=== PATIENT | female | born 2000 | race Caucasian/White ===

== ENCOUNTER 2020-03-27 16:56 | Emergency (ER) | payer OTHER ==
[~2020-03-27] VITALS: Ht 170.2 cm; Wt 127.5 kg
[2020-03-27 16:59] VITALS: BP 154/94
--- NOTE | 2020-03-27 17:03 | NUR ---
Patient ambulated to bed 4. RN evaluating patient at bedside.
--- NOTE | 2020-03-27 17:10 | NUR ---
technician plant and maintenance at bedside.
[2020-03-27] MEDS ORDERED: IBUPROFEN 600 MG TAB PO ONE (17:40)
--- NOTE | 2020-03-27 17:43 | NUR ---
Dr. Daniel is evaluating the patient at bedside.
--- NOTE | 2020-03-27 17:52 | NUR ---
PT LEFT ANKLE WRAPPED WITH 3" FLACA WRAP X2
--- NOTE | 2020-03-27 18:10 | NUR ---
Patient discharged with v/s stable. Written and verbal after care instructions given and explained. Patient alert, oriented and verbalized understanding of instructions. Ambulatory with steady gait WITH FLACA WRAP ON ANKLE. All questions addressed prior to discharge. ID band removed, NO IV ACCESS THIS VISIT. Patient advised to follow up with PMD. Rx of MOTRIN given. Patient educated on indication of medication including possible reaction and side effects. Opportunity to ask questions provided and answered. PT IN AGREEMENT WITH PLAN OF CARE.
== END 2020-03-27 17:52 | disposition home or self-care (01) ==
LOC: MED 16:56
DX: S93.402A Sprain of unspecified ligament of left ankle, initial encounter (principal); Z98.890 Other specified postprocedural states; W18.09XA Striking against other object with subsequent fall, initial encounter; Y93.89 Activity, other specified; Y92.89 Other specified places as the place of occurrence of the external cause; Y99.8 Other external cause status
CPT/HCPCS: 73610; 99283